=== PATIENT | female | born 1985 | race Two or more races ===

== ENCOUNTER 2020-04-21 08:14 | Outpatient (CLI) | payer OTHER ==
[2020-04-21] MEDS ORDERED: GADOBUTROL 7.5 MMOL/7.5 ML VIAL ONE (08:31)
[2020-04-21] MEDS ORDERED: GADOBUTROL 7.5 MMOL/7.5 ML VIAL IVP ONE (12:13)
--- NOTE | 2020-04-23 08:25 | MRI Report ---
PROCEDURE: Brain W/WO INDICATIONS: NEOPLASM OF ENDOCRINE GLANDS CONTRAST: IV CONTRAST: Gadavist ml: 7.5 TECHNIQUE: Noncontrast axial T1 spin echo, axial T2 fast spin echo, sagittal and axial FLAIR, coronal T2 fast sp in echo, axial gradient echo, axial diffusion and ADC through the brain. After the administration of contrast, axial and coronal T1 spin echo with fat saturation through the brain. COMPARISON: None. FINDINGS: Image quality: Excellent. CSF spaces: Basal cisterns are patent. No extra-axial fluid collections. Ventricles are normal in size and shape. Brain: No midline shift. No intracranial bleeds or masses. No abnormal intracranial enhancement. There is cerebral volume loss for age. There is periventricular white matter chronic small vessel is chemic change. The brainstem appears normal. Diffusion-weighted images demonstrate no acute ischemi c insults. No chronic ischemic insults. Normal intravascular flow voids are present. At the pituitary fossa a discrete mass lesion is not seen. Dynamic contrast infusion imaging through this area shows no focus of discrete increased or decreased contrast enhancement that would suggest p resence of a pituitary microadenoma. Skull and face: Calvarial marrow is normal in signal. Orbits appear normal. Sinuses: Sinuses and mastoids appear clear. IMPRESSION: Normal examination, a microadenoma or macroadenoma at the pituitary fossa is not identif ied. A source of suspected seizure activity is not seen, and no trauma is found. Reviewed by: Haim Chapa MD on 04/23/2020 8:24 AM PDT Approved by: Haim Chapa MD on 04/23/2020 8:24 AM PDT Station ID: [id number]
== END 2020-04-21 08:15 | disposition home or self-care (01) ==
LOC: DI 08:14
PROVIDERS: ATTEND Student in an Organized Health Care Education/Training Program
DX: D49.7 Neoplasm of unspecified behavior of endocrine glands and other parts of nervous system (principal)
CPT/HCPCS: 70553; A9585

== ENCOUNTER 2020-09-09 21:21 | Outpatient (CLI) | payer OTHER | END 2020-09-09 21:22 | disposition left against medical advice (07) | LOC: EMS 21:21 | DX: R56.9 Unspecified convulsions (principal) ==

== ENCOUNTER 2020-09-10 11:54 | Emergency (ER) | payer OTHER ==
--- NOTE | 2020-09-10 12:34 | ED Physician Documentation ---
History of Present Illness - Stated complaint Stated Complaint: LEFT EAR PX, HEADACHE, DIZZINESS, CONVULSIONS - Chief complaint Chief Complaint: Neuro - Additonal information Additional information: 34-year-old female presents the emergency department for concern that she may be having seizures at home. She reports episodes where she feels lightheaded dizzy and knows that an event is going to come on. These prodromal symptoms usually occur 5 to 10 minutes before she will begin to lose "convulse" and shake her head. Yesterday evening about 8 PM she began to feel lightheaded, dizzy and knew that something was going to occur. She reports that she began to shake her head uncontrollably. Event was wittnessed by her son and lasted less than a minute. She was aware it was occurring and she was trying to talk to her family and tell them that she was all right but she had slurred speech. She felt like her arm was heavy. She has been having these events for as long as 6 to 7 years. Pt states that when these episodes began about 7 years ago they occurred no more than twice a year, but now occurring almost monthly. She recently had an MRI in June 2020 that was unremarkable. She has seen a neurologist through [facility] in [place] Dr. Mccullough who also did an EEG and had no unremarkable findings. She is not on any antiepileptic medication. She was advised that if these events continued she is to follow-up with him. She called the office this morning to discuss the event and was advised to come to the emergency department. Patient denies any fevers, no falls or trauma. At this current time she feels normal and back to her baseline. She takes no prescribed medications. She has never been prescribed antiepileptic medications. Review of Systems Constitutional: denies: Fever, Chills Eyes: denies: Loss of vision, Decreased vision, Discharge, Irritation Ears: reports: Ear pain (left ear) Nose: reports: Reviewed and negative Throat: reports: Reviewed and negative Cardiac: reports: Reviewed and negative Respiratory: reports: Reviewed and negative GI: denies: Abdominal Pain, Nausea, Vomiting, Constipation, Diarrhea : denies: Dysuria, Frequency Skin: denies: Rash, Lesions Musculoskeletal: denies: Neck pain, Back pain, Extremity pain Neurologic: reports: Difficulty speaking, Seizure. denies: Generalized weakness, Focal weakness, Numbness, Near syncope, Headache, Head injury Psychiatric: reports: Reviewed and negative Endocrine: reports: Reviewed and negative PD PAST MEDICAL HISTORY - Present Medications Home Medications: Ambulatory Orders Medication Instructions Recorded Confirmed No Known Home Medications 09/10/20 09/10/20 - Allergies Allergies/Adverse Reactions: Allergies Allergy/AdvReac Type Severity Reaction Status Date / Time No Known Drug Allergies Allergy Verified 09/10/20 11:58 PD ED PE EXPANDED - General General: Well developed/nourished - HEENT HEENT: PERRL, EOMI - Eyes Eyes: PERRL, EOMI - Neck Neck: Supple w/out meningeal sx. No: Adenopathy - Cardiac Cardiac: Regular Rate, Regular Rhythm, Radial strong equal, Pedal strong equal, Cap refill < 2 sec. No: Murmur Present - Respiratory Respiratory: Clear to ausultation herberth. No: Distress, Labored - Abdomen Abdomen: Normal Bowel sounds. No: Tender to palpation - Derm Derm: Normal color, Warm and dry. No: Rash, Petecchiae, Purpura - Extremities Extremities: Normal. No: Deformity, Tenderness - Neuro Neuro: Alert and Oriented X 3, CNII-XII intact, Cerebellar nl, Normal gait, Normal finger nose, Normal speech. No: Nystagmus - GCS Eye Opening: Spontaneous Motor: Obeys Commands Verbal: Oriented Total: 15 Results - Vitals Vitals: Vital Signs - 24 hr 09/10/20 09/10/20 11:58 13:31 Temperature 36.6 C 36.0 C L Heart Rate 82 72 Respiratory 16 18 Rate Blood Pressure 123/66 112/73 O2 Saturation 100 100 Oxygen O2 Source Room air - Labs Labs: Laboratory Tests 09/10/20 09/10/20 09/10/20 12:30 12:30 12:35 WBC 6.0 RBC 5.27 Hgb 10.9 L Hct 37.5 MCV 71.2 L MCH 20.7 L MCHC 29.1 L RDW 17.4 H Plt Count 240 MPV 11.4 H Neut # (Auto) 3.7 Lymph # (Auto) 1.7 [place] # (Auto) 0.3 Eos # (Auto) 0.2 Baso # (Auto) 0.0 Absolute Nucleated RBC 0.00 Nucleated RBC % 0.0 Sodium 139 Potassium 3.7 Chloride 104 Carbon Dioxide 24 Anion Gap 11.0 BUN 11 Creatinine 0.6 Estimated GFR (MDRD) 114 Glucose 132 H Calcium 9.9 Total Bilirubin 0.5 AST 20 ALT 15 Alkaline Phosphatase 106 Total Protein 7.9 Albumin 4.3 Globulin 3.6 Albumin/Globulin Ratio 1.2 Lipase 28 Urine Color YELLOW Urine Clarity CLEAR Urine pH 5.5 Ur Specific [place] >=1.030 H Urine Protein NEGATIVE Urine Glucose (UA) NEGATIVE Urine Ketones NEGATIVE Urine Occult Blood TRACE-LYSE Urine Nitrite NEGATIVE Urine Bilirubin NEGATIVE Urine Urobilinogen 0.2 (NORMAL) Ur Leukocyte Esterase TRACE H Urine RBC 0-5 Urine WBC 0-3 Ur Squamous Epith Cells MANY Squamous H Urine Bacteria Few Urine Mucus Moderate Strands Ur Microscopic Review INDICATED Urine Culture Comments NOT INDICATED Urine HCG, Qual NEGATIVE PD MEDICAL DECISION MAKING - ED course Complexity details: reviewed results, re-evaluated patient, considered differential, d/w patient, d/w independent crop consultant (Blank (Neurologist)) ED course: 34-year-old female presents to the emergency department for evaluation of recurrent episodes that may be seizure-like at home. She has a prodromal phase where she begins to feel lightheaded and dizzy and knows that something is about to occur. She will then begin to sometimes shake especially her head. She is aware that the episodes are happening and tries to speak but is unable to. Symptoms began about 7 years ago but have been now occurring with increased frequency. She has seen a neurologist through [facility] in [facility]. Recently underwent a normal MRI and per patient an unremarkable EEG. She is not on any antiepileptic medication. She had a similar event last night. Here on exam today she has no focal neuro or cerebellar defects. She feels at her baseline health. Her vital signs are unremarkable. Screening labs show a very mild anemia with a hemoglobin of 10.9. Screening electrolytes also without any acute worrisome abnormality. Urine shows no signs of infection. She is not . I was able to speak with the patient's neurologist Dr. Mccullough and we discussed the case. He agrees that no new imaging is warranted today. He is also not sure that the episodes she is having at home are seizures but he feels that she needs to be referred to a larger [facility] for video [facility] monitoring. He reports that his office will place this consult. Patient was notified. Departure - Departure Disposition: 01 Home, Self Care Clinical Impression: Witnessed seizure-like activity Condition: Stable Record reviewed to determine appropriate education?: Yes Follow-Up: WANDY TUTTLE MD [Physician No Access] - Comments: Anabel chisholm are seen in the emergency department for episodes at home that sound like you may be having seizures and though based on the description it is difficult to tell. This has been a recurring problem for a few years. Here in the emergency department your neurological and cerebellar exam are unremarkable. Your vital signs are normal. Your labs are essentially normal with the exception of a very mild anemia as we discussed. It is important that you continue to follow-up with neurology for evaluation of these episodes. You may be having seizures or it could be pseudoseizure activity. If the episodes occur and you lose consciousness, you are unable to regain function after they occur please return immediately to the emergency department. Discharge Date/Time: 09/10/20 13:32
[2020-09-10 12:41] LABS: BASOPHILS % (AUTO) 0.3 %; EOSINOPHILS # (AUTO) 0.2 10^3/uL (0.0-0.7); EOSINOPHILS % (AUTO) 3.7 %; HGB - HEMOGLOBIN 10.9 g/dL (12.0-16.0); LYMPHOCYTES # (AUTO) 1.7 10^3/uL (1.5-3.5); LYMPHOCYTES % (AUTO) 28.9 %; MEAN CORPUSCULAR HEMOGLOBIN 20.7 pg (27.0-31.0); MEAN CORPUSCULAR HGB CONC 29.1 g/dL (32.0-36.0); MEAN CORPUSCULAR VOLUME 71.2 fL (81.0-99.0); MEAN PLATELET VOLUME 11.4 fL (7.9-10.8); MONOCYTES # (AUTO) 0.3 10^3/uL (0.0-1.0); MONOCYTES % (AUTO) 5.3 %; NEUTROPHILS # (AUTO) 3.7 10^3/uL (1.5-6.6); NEUTROPHILS % (AUTO) 61.6 %; PLT - PLATELET COUNT 240 10^3/uL (130-450); RED BLOOD COUNT 5.27 10^6/uL (4.20-5.40); RED CELL DISTRIBUTION WIDTH 17.4 % (12.0-15.0)
[2020-09-10 12:46] LABS: BILIRUBIN,URINE NEGATIVE (NEGATIVE); GLUCOSE, URINE (UA) NEGATIVE (NEGATIVE); KETONES,URINE (UA) NEGATIVE (NEGATIVE); LEUKOCYTE ESTERASE, URINE TRACE (NEGATIVE); NITRITE,URINE NEGATIVE (NEGATIVE); OCCULT BLOOD,URINE TRACE-LYSE (NEGATIVE); PH,URINE 5.5 PH (5.0-7.5); PROTEIN,URINE NEGATIVE (NEGATIVE); UROBILINOGEN,URINE 0.2 (NORMAL) E.U./dL (NORMAL)
[2020-09-10 12:48] LABS: CLARITY,URINE CLEAR (CLEAR); HCG UR QUAL NEGATIVE
[2020-09-10 12:52] LABS: ALBUMIN 4.3 g/dL (3.2-5.5); ALBUMIN/GLOBULIN RATIO 1.2 (1.0-2.2); BILIRUBIN,TOTAL 0.5 mg/dL (0.2-1.0); CALCIUM 9.9 mg/dL (8.5-10.3); CREATININE 0.6 mg/dL (0.4-1.0); TOTAL PROTEIN 7.9 g/dL (6.7-8.2)
[2020-09-10 12:57] LABS: BACTERIA,URINE Few /HPF (None Seen); MUCUS,URINE Moderate Strands; RBC,URINE 0-5 /HPF (0-5); SQUAMOUS EPITHELIAL CELL,UR MANY Squamous (<= Few)
[2020-09-10 13:32] VITALS: BP 112/73
== END 2020-09-10 13:32 | disposition home or self-care (01) ==
LOC: ED 11:54
DX: R56.9 Unspecified convulsions (principal)
CPT/HCPCS: 36415; 80053; 81001; 81003; 81025; 83690; 85025; 87086; 99283

== ENCOUNTER 2023-01-08 21:10 | Emergency (ER) | payer OTHER ==
[2023-01-08 21:22] VITALS: BP 132/85
[2023-01-08] MEDS ORDERED: SODIUM CHLORIDE 0.9% 1,000 ML IV STA (21:23)
[2023-01-08] MEDS ORDERED: KETOROLAC 30 MG/ML VIAL IVP STA (21:23)
--- NOTE | 2023-01-08 21:44 | ED Physician Documentation ---
History of Present Illness - Stated complaint Stated Complaint: HEADACHE - Chief complaint Chief Complaint: General - History obtained from History obtained from: Patient - History of Present Illness Pain level max: 9 Pain level now: 9 - Additonal information Additional information: Patient is a 37-year-old female who presents to the emergency department the headache today. She states that she was working at a [employer] today when she gradually developed a headache throughout the day. Feels similar to prior migraines. She tried to take Excedrin when she returned home but had vomiting by that time. No fevers. No chills. No cough. No congestion. No trauma. Denies any possibility of . Worse with light and sound, better with rest. No neck pain. 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: Other : None HEENT: None Psych: Anxiety Musculoskeletal: None Derm: None - Past Surgical History Past Surgical History: No - Present Medications Home Medications: Ambulatory Orders Medication Instructions Recorded Confirmed No Known Home Medications 09/10/20 09/10/20 - Allergies Allergies/Adverse Reactions: Allergies Allergy/AdvReac Type Severity Reaction Status Date / Time No Known Drug Allergies Allergy Verified 01/08/23 21:19 - Social History Does the pt smoke?: No Smoking Status: Never smoker Does the pt drink ETOH?: Yes Does the pt have substance abuse?: No - Immunizations Immunizations are current?: Yes PD ED PE NORMAL - Vitals Vital signs reviewed: Yes - General General: Alert and oriented X 3, No acute distress, Well developed/nourished - HEENT HEENT: Atraumatic, PERRL, EOMI, Moist mucous membranes, Pharynx benign - Neck Neck: Supple, no meningeal sign - Cardiac Cardiac: RRR, Strong equal pulses - Respiratory Respiratory: No respiratory distress, Clear bilaterally - Abdomen Abdomen: Soft, Non tender, Non distended - Derm Derm: Warm and dry - Extremities Extremities: No edema, No calf tenderness / cord - Neuro Neuro: Alert and oriented X 3, personal 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 2-12 intact, No motor deficit, No sensory deficit, Normal speech, Other (Normal cerebellar test) Eye Opening: Spontaneous Motor: Obeys Commands Verbal: Oriented GCS Score: 15 - Psych Psych: Normal mood, Normal affect Results - Vitals Vitals: Vital Signs - 24 hr 01/08/23 21:17 Temperature 36.1 C L Heart Rate 95 Respiratory 14 Rate Blood Pressure 132/85 H O2 Saturation 98 Oxygen O2 Source Room air - Labs Labs: Laboratory Tests 01/08/23 01/08/23 21:56 21:56 WBC 8.3 RBC 5.36 Hgb 10.1 L Hct 35.3 L MCV 65.9 L MCH 18.8 L MCHC 28.6 L RDW 17.0 H Plt Count 268 MPV 11.1 H Neut # (Auto) 6.5 Lymph # (Auto) 1.3 L [place] # (Auto) 0.4 Eos # (Auto) 0.1 Baso # (Auto) 0.0 Absolute Nucleated RBC 0.00 Nucleated RBC % 0.0 Manual Slide Review Indicated Platelet Estimate NORMAL (130-450,000) Platelet Morphology NORMAL APPEARANCE RBC Morph Micro Appear 1+ POLYCHROMASIA Sodium 136 Potassium 3.5 Chloride 104 Carbon Dioxide 24 Anion Gap 8.0 BUN 9 Creatinine 0.6 Estimated GFR (MDRD) 112 Glucose 111 H Calcium 9.3 PD Medical Decision Making - ED course Complexity details: reviewed results, re-evaluated patient, considered diff erential, d/w patient Reviewed Lab Results: Laboratory testing does reveal anemia, this is chronic. Her MCV is low with hypochromasia. Likely iron deficiency anemia. We will have her follow-up with her doctor for further evaluation of this. ED course: 37-year-old female with her usual migraine headache. She was given IV fluids, Toradol and droperidol. Headache resolved. No evidence of subarachnoid hemorrhage, tumor, mass. We will have her follow-up with her doctor for further care. Patient is well-appearing, nontoxic. Patient counseled regarding signs and symptoms for which I believe and urgent re-evaluation would be necessary. Patient with good understanding of and agreement to plan and is comfortable going home at this time This document was made in part using voice recognition software. While efforts are made to proofread this document, sound alike and grammatical errors may occur. Departure - Departure Disposition: 01 Home, Self Care Clinical Impression: Migraine Qualifiers: Migraine type: unspecified Status migrainosus presence: without status migrainosus Intractability: not intractable Qualified Code(s): G43.909 - Migra ine, unspecified, not intractable, without status migrainosus Anemia Qualifiers: Anemia type: unspecified type Qualified Code(s): D64.9 - Anemia, unspecified Condition: Good Instructions: ED Headache Migraine Follow-Up: Your,doctor in 1 week [Other] Comments: Please follow-up with your doctor for further care. Drink plenty of fluids and rest. Please return if you worsen. You were treated for migraine headache ton ight with Toradol, droperidol and IV fluids. You also have what appears to be chronic anemia on your blood work. You also have a low MCV and hyperchromasia. This is usually consistent with iron def iciency anemia. You should follow-up with your doctor to discuss iron supplementation and further testing to confirm the diagnosis.
[2023-01-08 22:03] LABS: BASOPHILS % (AUTO) 0.5 %; EOSINOPHILS # (AUTO) 0.1 10^3/uL (0.0-0.7); EOSINOPHILS % (AUTO) 0.7 %; HCT - HEMATOCRIT 35.3 % (37.0-47.0); HGB - HEMOGLOBIN 10.1 g/dL (12.0-16.0); LYMPHOCYTES # (AUTO) 1.3 10^3/uL (1.5-3.5); LYMPHOCYTES % (AUTO) 15.1 %; MEAN CORPUSCULAR HEMOGLOBIN 18.8 pg (27.0-31.0); MEAN CORPUSCULAR HGB CONC 28.6 g/dL (32.0-36.0); MEAN CORPUSCULAR VOLUME 65.9 fL (81.0-99.0); MEAN PLATELET VOLUME 11.1 fL (7.9-10.8); MONOCYTES # (AUTO) 0.4 10^3/uL (0.0-1.0); MONOCYTES % (AUTO) 4.4 %; NEUTROPHILS # (AUTO) 6.5 10^3/uL (1.5-6.6); NEUTROPHILS % (AUTO) 78.9 %; PLT - PLATELET COUNT 268 10^3/uL (130-450); RED BLOOD COUNT 5.36 10^6/uL (4.20-5.40); WHITE BLOOD COUNT 8.3 x10^3/uL (4.8-10.8)
[2023-01-08 22:09] LABS: CALCIUM 9.3 mg/dL (8.5-10.3); CREATININE 0.6 mg/dL (0.4-1.0); POTASSIUM 3.5 mmol/L (3.5-5.0)
[2023-01-08 22:22] LABS: PLATELET ESTIMATE, MANUAL NORMAL (130-450,000) (NORMAL); PLATELET MORPHOLOGY NORMAL APPEARANCE (NORMAL); SLIDE REVIEW? Indicated
[2023-01-08 22:39] LABS: HCG,QUALITATIVE BLOOD NEGATIVE
== END 2023-01-08 22:48 | disposition home or self-care (01) ==
LOC: EDUNIT# → ED 21:10
DX: G43.909 Migraine, unspecified, not intractable, without status migrainosus (principal); D64.9 Anemia, unspecified
CPT/HCPCS: 36415; 80048; 84703; 85025; 96374; 99283

== ENCOUNTER 2023-04-24 12:52 | Outpatient (CLI) | payer OTHER | END 2023-04-24 23:59 | disposition short-term general hospital (02) | LOC: EMS 12:52 | DX: R07.89 Other chest pain (principal); R00.2 Palpitations; R06.02 Shortness of breath | CPT/HCPCS: A0425; A0427 ==